=== PATIENT | female | born 1975 | race Caucasian/White ===

== ENCOUNTER 2017-10-07 12:12 | Inpatient (IN) | payer MEDICAID ==
[2017-10-07] MEDS: FAMOTIDINE 20 MG INJ IV (13:39)
[2017-10-07] MEDS: SOD CHLORIDE 0.9% 1,000 ML IV ×2 (13:39→18:30)
[2017-10-07] MEDS: morphine 4 MG/ML VIAL IV (13:39)
[2017-10-07 13:41] LABS: ADD MAN DIFF? NO
[2017-10-07 13:54] LABS: WHITE BLOOD COUNT 9.1 10^3/ul (4.8-10.8)
[2017-10-07 13:54] LABS: ABNORMAL IP MESSAGE 1; BASOPHILS % 0.4 % (0.0-2.0); EOSINOPHILS % 0.4 % (0.0-7.0); HEMATOCRIT 23.4 % (37.0-47.0); LYMPHOCYTES # 1.2 10^3/ul (0.8-2.9); LYMPHOCYTES % 12.9 % (15.0-51.0); MEAN CORPUSCULAR HEMOGLOBIN 17.3 pg (29.0-33.0); MEAN CORPUSCULAR HGB CONC 29.1 g/dl (32.0-37.0); MEAN CORPUSCULAR VOLUME 59.7 fl (82.0-101.0); MONOCYTE # 0.4 10^3/ul (0.3-0.9); MONOCYTES % 4.7 % (0.0-11.0); NEUTROPHIL # 7.4 10^3/ul (1.6-7.5); NEUTROPHILS % 81.3 % (39.0-77.0); PLATELET COUNT 494 10^3/UL (140-415); RED BLOOD COUNT 3.92 10^6/ul (4.20-5.40); RED CELL DISTRIBUTION WIDTH 18.2 % (11.5-14.5)
[2017-10-07 13:57] LABS: HEMOGLOBIN 6.8 g/dl (12.0-16.0); POSITIVE DIFF @See below
[2017-10-07 13:58] LABS: ADD UMIC YES; UR ASCORBIC ACID NEGATIVE (NEGATIVE); UR BACTERIA FEW /HPF (NONE SEEN); UR BILIRUBIN (Dip) NEGATIVE (NEGATIVE); UR BLOOD (Dip) NEGATIVE (NEGATIVE); UR CLARITY CLOUDY (CLEAR); UR COLOR YELLOW (YELLOW); UR GLUCOSE (Dip) NEGATIVE (NEGATIVE); UR KETONES (Dip) NEGATIVE (NEGATIVE); UR LEUKOCYTE ESTERASE (Dip) NEGATIVE Leu/ul (NEGATIVE); UR MUCUS MANY /HPF (NONE SEEN); UR NITRITE (Dip) NEGATIVE (NEGATIVE); UR RBC 2 /HPF (0-5); UR SPECIFIC GRAVITY (Dip) 1.029 (1.003-1.030); UR SQUAMOUS EPITHELIAL CELL MODERATE /HPF (FEW); UR TOTAL PROTEIN (Dip) 2+ mg/dl (NEGATIVE); UR UROBILINOGEN (Dip) NEGATIVE (NEGATIVE); UR WBC 6 /HPF (0-5)
[2017-10-07 14:02] LABS: ALANINE AMINOTRANSFERASE 47 IU/L (13-69); ALBUMIN 4.2 g/dl (3.3-4.9); ALBUMIN/GLOBULIN RATIO 0.84; ALKALINE PHOSPHATASE 114 IU/L (42-121); ANION GAP 17 (8-16); ASPARTATE AMINO TRANSFERASE 123 IU/L (15-46); BILIRUBIN,INDIRECT 0.2 mg/dl (0-1.1); BILIRUBIN,TOTAL 0.2 mg/dl (0.2-1.3); BLOOD UREA NITROGEN 20 mg/dl (7-20); CALCIUM 8.9 mg/dl (8.4-10.2); CARBON DIOXIDE 26 mmol/L (21-31); CHLORIDE 97 mmol/L (97-110); GLUCOSE 109 mg/dl (70-220); LIPASE 373 U/L (23-300); POTASSIUM 3.7 mmol/L (3.5-5.1); SODIUM 136 mmol/L (135-144); TOTAL PROTEIN 9.2 g/dl (6.1-8.1)
[2017-10-07] MEDS ORDERED: ALBUTEROL/IPRATROPIUM (NEB) 3 ML AMP HHN (15:30)
[2017-10-07] MEDS ORDERED: NACL 0.9% 3 ML SYG IV (15:30)
[2017-10-07] MEDS ORDERED: NITROGLYCERIN (SL) 0.4 MG TAB SL (15:30)
[2017-10-07] MEDS ORDERED: MAGNESIUM HYDROXIDE 30ML CUP PO (15:30)
[2017-10-07] MEDS ORDERED: LORAZEPAM 2 MG INJ IV (15:30)
[2017-10-07] MEDS ORDERED: DOCUSATE SODIUM 100 MG CAP PO (15:30)
[2017-10-07] MEDS ORDERED: NA PHOSPHATE/BIPHOS 133 ML ENEMA PR (15:30)
[2017-10-07 15:38] LABS: INR 1.02; PROTIME 13.5 Sec (11.9-14.9); PT RATIO 1.1
[2017-10-07 15:39] LABS: PARTIAL THROMBOPLASTIN TIME 27.5 Sec (25.0-35.0)
[2017-10-07 15:51] LABS: IRON 27 ug/dl (35-150)
[2017-10-07 16:00] LABS: % IRON SATURATION 5 % SAT (22-52); TOTAL IRON BINDING CAPACITY 523 ug/dl (241-421)
[2017-10-07 16:03] LABS: IMMEDIATE SPIN CROSSMATCH 1 2
[2017-10-07 16:09] LABS: FREE T4 (FREE THYROXINE) 1.65 ng/dl (0.64-1.79)
[2017-10-07] MEDS: ONDANSETRON 4 MG INJ IV (21:07)
[2017-10-08] MEDS: SOD CHLORIDE 0.9% 1,000 ML IV ×3 (01:21→16:38)
[2017-10-08 05:12] LABS: ADD MAN DIFF? NO
[2017-10-08 05:17] LABS: ABNORMAL IP MESSAGE 1; BASOPHILS % 0.6 % (0.0-2.0); EOSINOPHILS # 0.1 10^3/ul (0.0-0.5); EOSINOPHILS % 1.9 % (0.0-7.0); HEMATOCRIT 27.8 % (37.0-47.0); HEMOGLOBIN 8.5 g/dl (12.0-16.0); LYMPHOCYTES # 1.5 10^3/ul (0.8-2.9); LYMPHOCYTES % 23.3 % (15.0-51.0); MEAN CORPUSCULAR HEMOGLOBIN 19.8 pg (29.0-33.0); MEAN CORPUSCULAR HGB CONC 30.6 g/dl (32.0-37.0); MEAN CORPUSCULAR VOLUME 64.7 fl (82.0-101.0); MEAN PLATELET VOLUME 9.5 fl (7.4-10.4); MONOCYTE # 0.3 10^3/ul (0.3-0.9); MONOCYTES % 4.6 % (0.0-11.0); NEUTROPHIL # 4.4 10^3/ul (1.6-7.5); NEUTROPHILS % 69.4 % (39.0-77.0); PLATELET COUNT 333 10^3/UL (140-415); RED CELL DISTRIBUTION WIDTH 22.8 % (11.5-14.5)
[2017-10-08 05:17] LABS: WHITE BLOOD COUNT 6.3 10^3/ul (4.8-10.8)
[2017-10-08 05:32] LABS: HEMOGLOBIN A1C 5.7 % (0-5.9)
[2017-10-08 05:45] LABS: ANION GAP 15 (8-16); BLOOD UREA NITROGEN 12 mg/dl (7-20); CALCIUM 8.1 mg/dl (8.4-10.2); CARBON DIOXIDE 24 mmol/L (21-31); CHLORIDE 106 mmol/L (97-110); CREATININE 0.75 mg/dl (0.44-1.00); GLUCOSE 85 mg/dl (70-220); MAGNESIUM 1.7 mg/dl (1.7-2.5); PHOSPHORUS 2.2 mg/dl (2.5-4.9); POTASSIUM 3.4 mmol/L (3.5-5.1); SODIUM 142 mmol/L (135-144)
[2017-10-08 05:58] LABS: CHOLESTEROL 182 mg/dl (100-200)
[2017-10-08 05:58] LABS: CHOL/HDL RATIO 4.7 RATIO; HDL CHOLESTEROL 38 mg/dl (34-88); LDL CHOLESTEROL,CALCULATED 91 mg/dl; TRIGLYCERIDES 266 mg/dl (0-149)
[2017-10-08] MEDS: PANTOPRAZOLE (EC) 40 MG TAB PO ×2 (05:59→18:27)
[2017-10-08] MEDS: morphine 2 MG INJ IV (06:03)
[2017-10-08 06:10] LABS: POSITIVE DIFF @See below
[2017-10-08] MEDS: POTASSIUM PHOSPHATE 20 MEQ in SOD CHLORIDE 0.9% 250 ML IVPB (11:22)
[2017-10-08] MEDS: hydrALAzine 20 MG INJ IV (19:44)
[2017-10-09] MEDS: SOD CHLORIDE 0.9% 1,000 ML IV (04:18)
[2017-10-09] MEDS: HYDROCODONE/APAP (5/325) TAB PO (05:04)
[2017-10-09 05:36] LABS: ADD MAN DIFF? NO
[2017-10-09 05:42] LABS: ABNORMAL IP MESSAGE 1; BASOPHILS % 0.6 % (0.0-2.0); EOSINOPHILS # 0.1 10^3/ul (0.0-0.5); HEMATOCRIT 26.9 % (37.0-47.0); HEMOGLOBIN 8.3 g/dl (12.0-16.0); LYMPHOCYTES # 1.2 10^3/ul (0.8-2.9); LYMPHOCYTES % 23.6 % (15.0-51.0); MEAN CORPUSCULAR HEMOGLOBIN 19.9 pg (29.0-33.0); MEAN CORPUSCULAR HGB CONC 30.9 g/dl (32.0-37.0); MEAN CORPUSCULAR VOLUME 64.5 fl (82.0-101.0); MEAN PLATELET VOLUME 9.8 fl (7.4-10.4); MONOCYTE # 0.2 10^3/ul (0.3-0.9); MONOCYTES % 4.6 % (0.0-11.0); NEUTROPHIL # 3.4 10^3/ul (1.6-7.5); PLATELET COUNT 332 10^3/UL (140-415); RED BLOOD COUNT 4.17 10^6/ul (4.20-5.40); RED CELL DISTRIBUTION WIDTH 22.5 % (11.5-14.5)
[2017-10-09] MEDS: PANTOPRAZOLE (EC) 40 MG TAB PO ×2 (05:55→17:32)
[2017-10-09 05:56] LABS: POSITIVE DIFF @See below
[2017-10-09 06:18] LABS: ALANINE AMINOTRANSFERASE 55 IU/L (13-69); ALBUMIN 3.3 g/dl (3.3-4.9); ALKALINE PHOSPHATASE 80 IU/L (42-121); ASPARTATE AMINO TRANSFERASE 164 IU/L (15-46); BILIRUBIN,INDIRECT 0.5 mg/dl (0-1.1); BILIRUBIN,TOTAL 0.5 mg/dl (0.2-1.3); TOTAL PROTEIN 7.6 g/dl (6.1-8.1)
[2017-10-09 06:21] LABS: ANION GAP 15 (8-16); BLOOD UREA NITROGEN 5 mg/dl (7-20); CARBON DIOXIDE 25 mmol/L (21-31); CHLORIDE 106 mmol/L (97-110); CREATININE 0.62 mg/dl (0.44-1.00); GLUCOSE 83 mg/dl (70-220); POTASSIUM 3.5 mmol/L (3.5-5.1); SODIUM 142 mmol/L (135-144)
[2017-10-09] MEDS: BISACODYL (EC) 5 MG TAB PO (08:40)
[2017-10-09] MEDS: hydrALAzine 20 MG INJ IV (08:59)
[2017-10-09 10:09] LABS: HEPATITIS B SURFACE ANTIGEN NEGATIVE (NEGATIVE)
[2017-10-09 10:26] LABS: HEPATITIS C VIRAL ANTIBODY NEGATIVE (NEGATIVE)
[2017-10-09 10:26] LABS: HEPATITIS B SURFACE ANTIBODY POSITIVE (NEGATIVE)
[2017-10-09] MEDS: AMLODIPINE 2.5 MG TAB PO (12:29)
[2017-10-09] MEDS: ACETAMINOPHEN 325 MG TAB PO (15:19)
[2017-10-09] MEDS: MAGNESIUM CITRATE 300 ML BTL PO (17:33)
[2017-10-09] MEDS: POLYETHYLENE GLYCOL 3350 119 GM POWDER PO (17:38)
[2017-10-09] MEDS: SOD FERRIC GLUC COMPLX 125 MG in SOD CHLORIDE 0.9% 100 ML IVPB (17:39)
[2017-10-09] MEDS: SOD CHLORIDE 0.45% 1,000 ML IV (23:36)
[2017-10-10 02:07] LABS: OCCULT BLOOD STOOL NEGATIVE (NEGATIVE)
[2017-10-10 05:23] LABS: ADD MAN DIFF? NO
[2017-10-10 05:31] LABS: WHITE BLOOD COUNT 5.3 10^3/ul (4.8-10.8)
[2017-10-10 05:31] LABS: ABNORMAL IP MESSAGE 1; BASOPHILS % 0.4 % (0.0-2.0); EOSINOPHILS # 0.2 10^3/ul (0.0-0.5); EOSINOPHILS % 2.8 % (0.0-7.0); HEMATOCRIT 27.2 % (37.0-47.0); HEMOGLOBIN 8.3 g/dl (12.0-16.0); LYMPHOCYTES # 1.3 10^3/ul (0.8-2.9); LYMPHOCYTES % 24.3 % (15.0-51.0); MEAN CORPUSCULAR HEMOGLOBIN 19.7 pg (29.0-33.0); MEAN CORPUSCULAR HGB CONC 30.5 g/dl (32.0-37.0); MEAN CORPUSCULAR VOLUME 64.5 fl (82.0-101.0); MEAN PLATELET VOLUME 9.7 fl (7.4-10.4); MONOCYTE # 0.3 10^3/ul (0.3-0.9); MONOCYTES % 6.3 % (0.0-11.0); NEUTROPHIL # 3.5 10^3/ul (1.6-7.5); PLATELET COUNT 351 10^3/UL (140-415); RED BLOOD COUNT 4.22 10^6/ul (4.20-5.40); RED CELL DISTRIBUTION WIDTH 23.8 % (11.5-14.5)
[2017-10-10 05:35] LABS: POSITIVE DIFF @See below
[2017-10-10 05:53] LABS: LIPASE 151 U/L (23-300)
[2017-10-10 05:58] LABS: ALANINE AMINOTRANSFERASE 46 IU/L (13-69); ALBUMIN 3.7 g/dl (3.3-4.9); ALKALINE PHOSPHATASE 81 IU/L (42-121); ASPARTATE AMINO TRANSFERASE 138 IU/L (15-46); BILIRUBIN,INDIRECT 0.3 mg/dl (0-1.1); BILIRUBIN,TOTAL 0.3 mg/dl (0.2-1.3); TOTAL PROTEIN 7.8 g/dl (6.1-8.1)
[2017-10-10] MEDS: PANTOPRAZOLE (EC) 40 MG TAB PO (06:00)
[2017-10-10] MEDS: POLYETHYLENE GLYCOL 3350 119 GM POWDER PO (06:00)
[2017-10-10 06:07] LABS: ANION GAP 16 (8-16); BLOOD UREA NITROGEN 7 mg/dl (7-20); CALCIUM 8.4 mg/dl (8.4-10.2); CARBON DIOXIDE 26 mmol/L (21-31); CHLORIDE 105 mmol/L (97-110); CREATININE 0.65 mg/dl (0.44-1.00); GLUCOSE 94 mg/dl (70-220); POTASSIUM 3.5 mmol/L (3.5-5.1); SODIUM 143 mmol/L (135-144)
[2017-10-10] MEDS: AMLODIPINE 2.5 MG TAB PO (09:01)
[2017-10-10] MEDS: BISACODYL (EC) 5 MG TAB PO (09:01)
[2017-10-10] MEDS: SOD CHLORIDE 0.45% 1,000 ML IV ×2 (09:06→10:30)
[2017-10-10] MEDS: ONDANSETRON 4 MG INJ IV (09:06)
[2017-10-10] MEDS: PROPOFOL 60 ML (15:25)
[2017-10-10] MEDS: SOD FERRIC GLUC COMPLX 125 MG in SOD CHLORIDE 0.9% 100 ML IVPB (18:07)
[2017-10-10 21:47] LABS: CREATININE,URINE RANDOM 108.02 mg/dl (20-320)
[2017-10-10] MEDS: CHLORTHALIDONE 25 MG TAB PO (23:04)
[2017-10-11] MEDS: hydrALAzine 20 MG INJ IV (01:07)
[2017-10-11 05:10] LABS: ADD MAN DIFF? NO
[2017-10-11 05:17] LABS: ABNORMAL IP MESSAGE 1; MEAN CORPUSCULAR VOLUME 64.9 fl (82.0-101.0); MONOCYTE # 0.3 10^3/ul (0.3-0.9)
[2017-10-11 05:23] LABS: BASOPHILS % 0.8 % (0.0-2.0); EOSINOPHILS # 0.2 10^3/ul (0.0-0.5); EOSINOPHILS % 4.6 % (0.0-7.0); HEMATOCRIT 28.3 % (37.0-47.0); HEMOGLOBIN 8.6 g/dl (12.0-16.0); LYMPHOCYTES # 1.1 10^3/ul (0.8-2.9); LYMPHOCYTES % 22.7 % (15.0-51.0); MEAN CORPUSCULAR HEMOGLOBIN 19.7 pg (29.0-33.0); MEAN CORPUSCULAR HGB CONC 30.4 g/dl (32.0-37.0); MEAN PLATELET VOLUME 9.7 fl (7.4-10.4); NEUTROPHIL # 3.3 10^3/ul (1.6-7.5); NEUTROPHILS % 65.5 % (39.0-77.0); PLATELET COUNT 330 10^3/UL (140-415); RED BLOOD COUNT 4.36 10^6/ul (4.20-5.40); RED CELL DISTRIBUTION WIDTH 24.2 % (11.5-14.5)
[2017-10-11 05:42] LABS: ANION GAP 15 (8-16); BLOOD UREA NITROGEN 8 mg/dl (7-20); CALCIUM 8.7 mg/dl (8.4-10.2); CARBON DIOXIDE 25 mmol/L (21-31); CHLORIDE 105 mmol/L (97-110); CREATININE 0.69 mg/dl (0.44-1.00); GLUCOSE 89 mg/dl (70-220); POTASSIUM 3.4 mmol/L (3.5-5.1); SODIUM 142 mmol/L (135-144)
[2017-10-11 05:51] LABS: POSITIVE DIFF @See below
[2017-10-11 06:41] LABS: HEPATITIS B CORE ANTIBODY NEGATIVE (NEGATIVE)
[2017-10-11] MEDS: CHLORTHALIDONE 25 MG TAB PO (08:27)
[2017-10-11] MEDS ORDERED: CHLORTHALIDONE 25 MG TAB PO (09:00)
[2017-10-11] MEDS: POTASSIUM CHLORIDE (SR) 20 MEQ TAB PO (12:01)
[2017-10-11] MEDS: INFLUENZA VIRUS VACCINE 0.5 ML (DISPENSING) IM* (12:02)
== END 2017-10-11 12:50 | disposition home or self-care (01) | DRG 812 ==
LOC: MS1 10-10 17:12 → FTE 12:12 → MS1 14:53
PROC: 0DB98ZX Excision of Duodenum, Via Natural or Artificial Opening Endoscopic, Diagnostic (ICD-10-PCS; principal; 2017-10-10 14:09)
PROC: 0DJD8ZZ Inspection of Lower Intestinal Tract, Via Natural or Artificial Opening Endoscopic (ICD-10-PCS; 2017-10-10 14:09)
PROC: 3E0234Z Introduction of Serum, Toxoid and Vaccine into Muscle, Percutaneous Approach (ICD-10-PCS; 2017-10-10 14:09)
PROC: 30233N1 Transfusion of Nonautologous Red Blood Cells into Peripheral Vein, Percutaneous Approach (ICD-10-PCS; 2017-10-10 14:09)
DX: D50.9 Iron deficiency anemia, unspecified (principal); I10 Essential (primary) hypertension; Z23 Encounter for immunization
CPT/HCPCS: 36415; 36430; 74176; 76705; 76856; 80048; 80053; 80061; 80076; 81001; 81003; 82270; 83036; 83540; 83690; 83735; 84100; 84155; 84439; 84443; 84703; 85025; 85610; 85730; 86704; 86706; 86708; 86803; 86850; 86900; 86901; 86920; 87340; 88305; 90686; 93005; 96374; 96375; 99285-25

== ENCOUNTER 2018-08-28 08:01 | Emergency (ER) | payer MEDICAID ==
[2018-08-28] MEDS ORDERED: PROMETHAZINE 25 MG SUPP PR (09:00)
[2018-08-28 09:11] LABS: URINE BLOOD (Dip) POC Trace-intact (NEGATIVE); URINE GLUCOSE (Dip) POC Negative (NEGATIVE); URINE KETONES (Dip) POC Trace (NEGATIVE); URINE LEUKOCYTE EST (Dip) POC Negative (NEGATIVE); URINE NITRITE (Dip) POC Negative (NEGATIVE); URINE TOTAL PROTEIN POC 3+ (NEGATIVE)
[2018-08-28] MEDS: ACETAMINOPHEN 500 MG TAB PO (09:17)
[2018-08-28] MEDS: PROMETHAZINE 25 MG TAB PO (09:39)
== END 2018-08-28 09:43 | disposition home or self-care (01) ==
LOC: FTE 08:01
DX: J06.9 Acute upper respiratory infection, unspecified (principal); H60.502 Unspecified acute noninfective otitis externa, left ear
CPT/HCPCS: 81003; 99283